=== PATIENT | male | born 1955 | race Caucasian/White ===

== ENCOUNTER 2023-01-31 15:53 | Emergency (ER) | payer MEDICARE ==
[2023-01-31] MEDS ORDERED: Boostrix 0.5 ML (Tdap) VIAL (>/=7 yrs of age) ONE (16:19)
[2023-01-31] MEDS ORDERED: Morphine 4 MG/ML VIAL ONE ×4 (16:19→19:14)
[2023-01-31] MEDS ORDERED: CEFAZOLIN 2 GM VIAL ONE (16:19)
[2023-01-31] MEDS ORDERED: Sodium Chloride 0.9% 100 ML ONE (16:19)
[2023-01-31 17:10] LABS: #Basophils 0.1 thou/uL (0.0-0.2); #Eosinphils 0.4 thou/uL (0.0-0.7); #Neutrophils 12.3 thou/uL (1.40-6.50); %Basophils 0.4 % (0.0-1.0); %Eosinophils 2.8 % (0.0-10.0); %Lymphocytes 7.1 % (21.0-51.0); %Monocytes 6.5 % (0.0-10.0); %Neutrophils 82.7 % (42.0-75.0); Hematocrit 44.6 % (42.0-52.0); Hemoglobin 15.3 g/dL (14.0-18.0); Mean Corpuscular HGB CONC 34.3 g/dL (32.0-36.0); Mean Corpuscular Volume 93.3 fl (78.0-98.0); Mean Platelet Volume 10.1 fL (7.4-10.4); Platelet Count 206 10x3/uL (130-400); RBC Distribution Width 13.2 % (11.5-14.5); Red Blood Cell (RBC) Count 4.78 mill/uL (4.70-6.10); White Blood Cell (WBC) Count 14.9 10x3/uL (4.8-10.8)
[2023-01-31 17:34] LABS: ALT (SGPT) 29 U/L (8-55); AST (SGOT) 28 U/L (5-34); Albumin 4.2 g/dL (3.4-4.8); Alkaline Phosphatase 58 U/L (40-110); Anion Gap 16 mmol/L (10-20); BUN (Urea Nitrogen) 22 mg/dL (8.4-25.7); Bilirubin, Total 1.2 mg/dL (0.2-1.2); Calc. Creatinine Clearance 0 mL/min (70-130); Calcium 9.4 mg/dL (7.8-10.44); Carbon Dioxide 19 mmol/L (23-31); Chloride 108 mmol/L (98-107); Estimated GFR 72; Globulin 2.9 g/dL (2.4-3.5); Glucose 103 mg/dL (80-115); Potassium 4.6 mmol/L (3.5-5.1); Protein, Total 7.1 g/dL (5.8-8.1); Sodium 138 mmol/L (136-145)
== END 2023-01-31 19:29 | disposition short-term general hospital (02) ==
LOC: ERS 15:53
DX: S69.92XA Unspecified injury of left wrist, hand and finger(s), initial encounter (principal); S62.611B Displaced fracture of proximal phalanx of left index finger, initial encounter for open fracture; S62.613B Displaced fracture of proximal phalanx of left middle finger, initial encounter for open fracture; S62.615B Displaced fracture of proximal phalanx of left ring finger, initial encounter for open fracture; E78.5 Hyperlipidemia, unspecified; I25.2 Old myocardial infarction; Z79.899 Other long term (current) drug therapy; Z79.82 Long term (current) use of aspirin; W31.2XXA Contact with powered woodworking and forming machines, initial encounter
CPT/HCPCS: 36416; 80053; 85025; 86850; 86900; 86901; 90471; 90715; 96374; 96375; 96376; J2270; J3490